=== PATIENT | male | born 2000 | race Hispanic/Latino ===

== ENCOUNTER 2022-08-03 10:47 | Emergency (ER) | payer SELFPAY ==
[~2022-08-03] VITALS: Ht 175.3 cm; Wt 74.8 kg
== END 2022-08-03 14:36 | disposition home or self-care (01) ==
LOC: ER 11:03
DX: N50.811 Right testicular pain (principal); N43.3 Hydrocele, unspecified
CPT/HCPCS: 76870; 93976; 99283